=== PATIENT | female | born 1960 | race African-American/Black ===

== ENCOUNTER 2016-10-20 09:12 | Inpatient (IN) | payer BC ==
[2016-10-19 11:19] VITALS: BMI 36.0
[2016-10-20] MEDS ORDERED: ceFAZolin SODIUM 1 GM VIAL ONE ×2 (10:39→12:54)
[2016-10-20] MEDS ORDERED: GENTAMICIN SO4 80 MG/2 ML VIAL ONE (10:39)
[2016-10-20] MEDS ORDERED: BUPIVACAINE HCL/PF 2.5 MG/ML - 30 ML VIAL IJ ONE ×2 (10:39→13:30)
[2016-10-20] MEDS ORDERED: POLYMYXIN B SULFATE 500,000 UNIT VIAL ONE (10:40)
[2016-10-20] MEDS ORDERED: TRIMETHOBENZAMIDE HCL 200MG/2ML INJ IM PRN (11:19)
[2016-10-20] MEDS ORDERED: ROCURONIUM BROMIDE 50 MG/5 ML VIAL ONE (11:50)
[2016-10-20] MEDS ORDERED: PROPOFOL 20 ML ONE ×2 (11:50→12:52)
[2016-10-20] MEDS ORDERED: DEXAMETHASONE SOD PHOSPHATE 4 MG/1 ML VIAL ONE (12:53)
[2016-10-20] MEDS ORDERED: MIDAZOLAM HCL 2 MG/2 ML SINGLE DOSE VIAL ONE (12:53)
[2016-10-20] MEDS ORDERED: LIDOCAINE HCL/PF 2% SDV 5ML VIAL ONE (12:55)
[2016-10-20] MEDS ORDERED: ACETAMINOPHEN INJECTION 100 ML IVPB ONE (13:31)
[2016-10-20] MEDS ORDERED: PROMETHAZINE HCL 25 MG/1 ML VIAL IVPB PRN (14:58)
[2016-10-20] MEDS ORDERED: ONDANSETRON 4 MG/2 ML VIAL IVPUSH PRN ×2 (14:58)
[2016-10-20] MEDS ORDERED: PROMETHAZINE HCL 25 MG/1 ML VIAL IVPUSH PRN (14:58)
[2016-10-20] MEDS ORDERED: LACTATED RINGERS SOLUTION 1,000 ML IV SCH (15:00)
[2016-10-20] MEDS ORDERED: LACTATED RINGERS SOLUTION 1,000 ML IV STA (15:34)
[2016-10-20] MEDS ORDERED: PROMETHAZINE HCL 25 MG/1 ML VIAL IVPUSH ONE (15:35)
[2016-10-20] MEDS ORDERED: DEXAMETHASONE SOD PHOSPHATE 4 MG/1 ML VIAL IVPUSH ONE (16:04)
[2016-10-20 16:22] LABS: MCH 30.1 pg (25.7-33.7); MCHC 33.4 g/dl (32.0-36.0); MEAN CELL VOLUME 90.2 fl (80-96); PLATELET COUNT 200 K/MM3 (134-434); RDW 15.1 % (11.6-15.6); WHITE BLOOD COUNT 12.2 K/mm3 (4.0-10.0)
[2016-10-20] MEDS ORDERED: FAMOTIDINE 20 MG/50 ML IVPB 50 ML IVPB ONE (16:28)
[2016-10-20] MEDS ORDERED: FAMOTIDINE 20 MG PREMIXED IVPB IVPB ONE (16:30)
[2016-10-20 16:34] LABS: ALBUMIN 3.5 g/dl (3.5-5.0); ALK PHOS 57 U/L (32-92); ANION GAP 9 (8-16); BILIRUBIN,TOTAL 0.6 mg/dl (0.2-1.0); CALCIUM 8.8 mg/dl (8.4-10.2); CO2 24 mmol/L (22-28); CREATININE 0.7 mg/dl (0.6-1.3); GLUCOSE,RANDOM 173 mg/dl (74-106); SGOT/AST 38 U/L (10-42); SGPT/ALT 38 U/L (10-40); TOT PROT 6.3 g/dl (6.4-8.3)
[2016-10-20] MEDS ORDERED: hydrALAZINE HCL 20 MG/ML VIAL ONE (16:48)
[2016-10-20] MEDS ORDERED: hydrALAZINE HCL 20 MG/ML VIAL IVPUSH ONE (16:50)
[2016-10-20] MEDS: hydrALAZINE HCL 20 MG/ML VIAL IVPUSH SCH ×5 (17:15→18:50)
[2016-10-20] MEDS: HYDROmorphone *PCA* 10MG/50ML DISP.SYRIN PCA SCH ×2 (17:22→18:20)
[2016-10-20] MEDS ORDERED: LABETALOL HCL 5 MG/1 ML (100MG/20 ML VIAL) ONE (18:02)
[2016-10-20] MEDS ORDERED: LABETALOL HCL 5 MG/1 ML (100MG/20 ML VIAL) IVPUSH ONE (18:05)
[2016-10-20] MEDS: SODIUM CHLORIDE 1,000 ML IV SCH (18:49)
[2016-10-20] MEDS: LABETALOL HCL 5 MG/1 ML (100MG/20 ML VIAL) IVPUSH SCH ×2 (18:50→23:05)
--- NOTE | 2016-10-20 21:08 | OP ---
DATE OF OPERATION: 10/20/2016 PREOPERATIVE DIAGNOSIS: Morbid obesity. POSTOPERATIVE DIAGNOSIS: Morbid obesity. PROCEDURE PERFORMED: 1. Laparoscopic vertical sleeve gastrectomy. 2. Diagnostic laparoscopy. OPERATING SURGEON: Vitaly Townsend MD PAPER PRODUCTS INSPECTOR: Mitch Dalton MD ANESTHESIA: General. OPERATIVE PROCEDURE: The patient was brought in to the operating room, placed on the OR table in the supine position. All precautions were taken initially including padding for the back and the feet and Venodyne boots were placed on both lower extremities. At that point the abdomen was prepped and draped in the usual manner. A Veress needle was placed in the left upper quadrant and a pneumoperitoneum established. A number 12 bladeless trocar was placed in the left upper quadrant. Through that trocar, a laparoscopic camera was placed. Under direct vision, a number 15 bladeless trocar was placed in the midline in a supraumbilical position, followed by a number 5 bladeless trocar in the right upper quadrant and a number 5 bladeless trocar below the left costal margin. A Tatum liver retractor was then placed in the epigastrium to retract the left lobe of the liver. The patient was then placed in a 20-degree reverse Trendelenburg position and attention was directed to the upper stomach. There were some minor adhesions noted here between the anterior stomach wall and the undersurface of the left lobe of the liver and these were lysed with a combination of dissection, either with the cautery or with the LigaSure device. Once this was completely clean, Anesthesia passed a bougie down, which was a number 40, and it showed that it went through the esophagogastric junction and stayed along the lesser curvature without any difficulty. At this point attention was directed to the pylorus of the stomach. Six cm was measured proximally and here, on the greater curve, with the operating surgeon lifting the stomach wall to the anterior abdominal wall, the assistant sales manager surgeon retracted the gastrocolic ligament inferiorly. The LigaSure device was now used to dissect the gastrocolic ligament off the greater curve of the stomach. This continued in a superior and vertical direction, during which time the assistant sales manager surgeon kept retracting the short gastric vessels laterally, the operating surgeon retracted the stomach medially. This continued until a final short gastric vessel between the proximal stomach and the superior pole of the spleen was divided. At this juncture, Anesthesia pushed a number 40 bougie further along until it made a curve toward the pylorus. With the assistant sales manager surgeon retracting the stomach laterally to the patient's left side, the operating surgeon placed 2 black load hector 6 cm in length off the bougie and fired. This continued now with purple hector, continuing to go along the bougie but not very very tight on bougie but close to it, with care being checked that the anterior and posterior serrano were checked each time it was fired to make sure they were equal. The final staple was fired in the left upper quadrant and the greater curve was now completely detached from the lesser curve. It should be noted that in the esophagogastric junction area, approximately 1.5 cm of serosa remained on both the anterior and posterior serrano. At this juncture, saline was placed around the staple line, Anesthesia inserted air into the bougie, which showed the entire stomach distended all the way down to the pylorus. No obstruction and no leak was noted. At this time the greater curvature of the stomach specimen was removed through the number 15 trocar site in the midline, sent off the field as specimen to Pathology. Under direct vision, the number 15 and number 5 trocars were closed with Endoclose device to prevent internal hernia and prevent bleeding. The liver retractor was removed, as was the bougie, and pneumoperitoneum was released as all trocars were removed. All trocar sites then received 0.25% Marcaine, were closed with 4-0 Biosyn in subcuticular fashion. Dressings were applied. Patient awoke from anesthesia and transferred out of the operating room to the recovery room in stable condition. Anesthesia in the case was general. Surgeon: Dr. Townsend. Web Marketing Coordinator: Dr. Dalton. Expected blood loss: 30 mL. Patient transferred to recovery room in stable condition. Shira [id number]
[2016-10-20] MEDS: ENOXAPARIN NA (PORCINE) 40 MG/0.4 ML DISP.SYRIN SQ SCH (22:41)
[2016-10-20] MEDS: FAMOTIDINE 20 MG/50 ML IVPB 50 ML IVPB SCH (22:41)
[2016-10-21] MEDS ORDERED: PT OWN MED DRAWER 7, Y5N ONE (09:46)
[2016-10-21] MEDS: ENOXAPARIN NA (PORCINE) 40 MG/0.4 ML DISP.SYRIN SQ SCH ×2 (09:50→21:06)
[2016-10-21] MEDS: LEVOTHYROXINE SODIUM 100 MCG VIAL IM SCH (09:51)
[2016-10-21] MEDS: FAMOTIDINE 20 MG/50 ML IVPB 50 ML IVPB SCH ×2 (09:57→21:06)
[2016-10-21 09:58] LABS: MCH 30.6 pg (25.7-33.7); MCHC 33.7 g/dl (32.0-36.0); MEAN CELL VOLUME 91.1 fl (80-96); MEAN PLT VOLUME 10.3 fl (7.5-11.1); PLATELET COUNT 206 K/MM3 (134-434); RDW 14.9 % (11.6-15.6)
[2016-10-21 10:18] LABS: ALBUMIN 3.6 g/dl (3.5-5.0); ALK PHOS 56 U/L (32-92); ANION GAP 6 (8-16); BILIRUBIN,TOTAL 0.8 mg/dl (0.2-1.0); CALCIUM 8.7 mg/dl (8.4-10.2); CO2 25 mmol/L (22-28); CREATININE 0.6 mg/dl (0.6-1.3); GLUCOSE,RANDOM 125 mg/dl (74-106); SGOT/AST 32 U/L (10-42); SGPT/ALT 40 U/L (10-40); TOT PROT 6.7 g/dl (6.4-8.3)
[2016-10-21] MEDS: SODIUM CHLORIDE 1,000 ML IV SCH (11:30)
--- NOTE | 2016-10-21 12:40 | EKG ---
Test Reason : Blood Pressure : / mmHG Vent. Rate : 063 BPM Atrial Rate : 063 BPM P-R Int : 156 ms QRS Dur : 094 ms QT Int : 434 ms P-R-T Axes : 034 -08 -10 degrees QTc Int : 444 ms NORMAL SINUS RHYTHM NONSPECIFIC T WAVE ABNORMALITY NO PREVIOUS ECGS AVAILABLE Confirmed by MD TAVAREZ MARJORY ([id number]) on 10/21/2016 12:39:49 PM Referred By: Vitaly Townsend Confirmed By:GAIL TAVAREZ MD
[2016-10-21] MEDS ORDERED: OXYCODONE/APAP 5/325MG COMBO TABLET PO PRN ×2 (17:37→17:38)
[2016-10-21] MEDS ORDERED: SODIUM CHLORIDE 1,000 ML IV SCH (17:45)
--- NOTE | 2016-10-21 17:45 | PN ---
Progress Note (short form) - Note Progress Note: POD#1 Pt doing better Occasional nausea, but decreased P-74 BP- 159/71 UGI- no leak, contrast flows into distal stomach P- Begin clear liquids- 2 oz po tid OOB-chair- ambulate Cont DVT prophylaxis
[2016-10-22] MEDS: FAMOTIDINE 20 MG/50 ML IVPB 50 ML IVPB SCH (09:24)
[2016-10-22] MEDS: LEVOTHYROXINE SODIUM 100 MCG VIAL IM SCH (09:25)
[2016-10-22] MEDS: ENOXAPARIN NA (PORCINE) 40 MG/0.4 ML DISP.SYRIN SQ SCH (09:25)
[2016-10-22 14:05] VITALS: BP 148/71; PULSE 69; TEMP 99.1
--- NOTE | 2016-10-22 14:19 | PN ---
Progress Note (short form) - Note Progress Note: POD#2 Pt doing well daniele po clear liquids- 2oz po tid All trocar sites clean, dry P- D/C home instructions reviewed with pt and F/U with Dr Townsend 10/26/16
--- NOTE | 2016-10-24 11:51 | PATH ---
Surgical Pathology Report Patient Name: MARIO MOCK Med. Rec. #: [id number] /Age/Gender: 1960 (Age: 56) / F Account: [id number] Location: [facility] Taken: 10/20/2016 Received: 10/20/2016 Reported: 10/24/2016 Physicians: Vitaly Townsend M.D. Specimen(s) Received GREATER CURVATURE OF STOMACH Clinical History Morbid obesity Final Diagnosis STOMACH, GREATER CURVATURE, LAPAROSCOPIC GASTRIC SLEEVE: PORTION OF STOMACH WITH PATCHY MINIMAL CHRONIC GASTRITIS. IMMUNOSTAIN FOR H. PYLORI IS NEGATIVE FOR ORGANISMS. Electronically Signed Jd Khan M.D. Gross Description Received in formalin, labeled "greater curvature of the stomach" is a 152 gram, 22.0 x 5.0 x 2.5 cm. portion of stomach with a stapled margin of resection. The serosa is meier-simmons with minimal attached fat. The mucosa is meier-pink with focally flattened folds. No mucosal masses are identified. Teacher Music sections are submitted in one cassette. 10/21/2016 [facility]10/21/2016
== END 2016-10-22 14:15 | disposition home or self-care (01) | DRG 621 ==
LOC: FM/S 09:12
PROVIDERS: ADMIT Surgery; ATTEND Surgery
PROC: BD15YZZ Fluoroscopy of Upper GI using Other Contrast (ICD-10-PCS; 2016-10-20)
PROC: 0DB64Z3 Excision of Stomach, Percutaneous Endoscopic Approach, Vertical (ICD-10-PCS; principal; 2016-10-20 14:10)
DX: E66.01 Morbid (severe) obesity due to excess calories (principal); Z68.36 Body mass index [BMI] 36.0-36.9, adult
CPT/HCPCS: 36415; 74241-TC; 80053; 85027; 88305-TC; 93005; 94760